=== PATIENT | female | born 1985 | race Caucasian/White ===

== ENCOUNTER 2016-04-21 21:00 | Emergency (ER) | payer OTHER ==
[~2016-04-21] VITALS: Ht 157.5 cm; Wt 110.9 kg
[~2016-04-21 21:00] MED LIST: CLX20 PO; OMEP20CA9 PO
[2016-04-21 21:11] VITALS: TEMP 37.1; Ht 157.5 cm; Wt 110.9 kg
[2016-04-21] MEDS ORDERED: CITA20TA9 PO (21:44)
[2016-04-21] MEDS ORDERED: IBUP1CAP9 PO (21:46)
[2016-04-21] MEDS ORDERED: ACET650S10 PO (21:48)
--- NOTE | 2016-04-21 22:26 | DIAGNOSTIC IMAGING REPORT ---
ULTRASOUND LEFT VENOUS DOPP LOWER EXT UNILAT CLINICAL HISTORY: Left leg pain and swelling COMPARISON STUDY: No previous studies for comparison. FINDINGS: Real-time and color flow Doppler imaging were performed. Flow was seen within the femoral, popliteal and calf veins with no intraluminal thrombus demonstrated. The saphenous vein is patent. IMPRESSION: No evidence of left lower extremity DVT. Electronically signed by: Richard De Leon M.D. 04/21/2016 10:25 PM Dictated Date/Time: 04/21/2016 10:24 PM
--- NOTE | 2016-04-21 22:35 | DIAGNOSTIC IMAGING REPORT ---
LEFT FOOT MIN 3 VIEWS ROUTINE CLINICAL HISTORY: left foot and great toe pain COMPARISON: None. DISCUSSION: No fractures are visualized. There are no erosive or destructive changes. There is mild dorsal soft tissue swelling. IMPRESSION: Mild soft tissue swelling. No fractures identified. No erosive or destructive changes are visualized on conventional radiographic imaging Electronically signed by: Richard De Leon M.D. 04/21/2016 10:34 PM Dictated Date/Time: 04/21/2016 10:33 PM
[2016-04-21 22:51] VITALS: BP 132/93; PULSE 96; O2SAT 97
--- NOTE | 2016-04-21 23:53 | EMERGENCY ROOM VISIT NOTE ---
History First contact with patient: 21:14 Chief Complaint: FOOT PAIN Stated Complaint: SWOLLEN/PAINFUL L FOOT History of Present Illness The patient is a 30 year old female who presents to the Emergency Room with complaints of pain and swelling to her left lower leg and into her foot. The patient does not recall a distinct injury or trauma to explain her symptoms. Her pain worsens with ambulation. 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 The patient does not have a history of DVT or PE, but is concerned about this. She does not have a history of gout or diabetes. She states her symptoms wax and wane, and do worsen with ambulation. Her pain is a 3/10 at rest and a 5/10 with walking. She does not have back pain, knee pain, or other complaint. She has not taken anything [id number] for her symptoms. Review of Systems More than 10 systems were reviewed and otherwise negative with the exception of history of present illness. Past Medical/Surgical History Surgical Problems: (1) History of cholecystectomy (2) Previous section Family History Cancer Social History Smoking Status: Current Every Day Smoker Alcohol Use: none Drug Use: none Marital Status: in relationship Housing Status: lives with family Occupation Status: employed Current/Historical Medications Scheduled Citalopram Hydrobromide (Celexa), 20 MG PO DAILY Scheduled PRN Acetaminophen (Tylenol), 650 MG PO BID PRN for Pain Ibuprofen (Ibuprofen), 400 MG PO BID PRN for Pain Allergies Coded Allergies: Sulfa Drugs (Unverified Allergy, Mild, HIVES, 11/19/13) Physical Exam Vital Signs Date Time Temp Pulse Resp B/P Pulse Ox O2 Delivery O2 Flow Rate FiO2 04/21/16 21:11 37.1 110 18 164/110 95 Room Air Physical Exam VITALS: Vitals are noted on the nurse's note and reviewed by myself. Vital signs stable. GENERAL: Well-developed, well-nourished, obese white female, who is in no acute distress and resting comfortably. Patient is cooperative with the examination. HEAD: Normocephalic atraumatic. HEART: Regular rate and rhythm without murmurs gallops or rubs. LUNGS: Clear to auscultation bilaterally without wheezes, rales or rhonchi. No retractions or accessory muscle use. MUSCULOSKELETAL: Tenderness appreciated over the midfoot of the left foot. There is some edema of the foot but no significant erythema. No ecchymosis. No tenderness of the ankle. There is some pretibial edema, 2+. Mild tenderness over the distal posterior leg. No distinct Homans sign. No palpable cord. NEURO: Patient was alert and oriented to person place and time. CN II through XII grossly intact. Deep tendon reflexes 2+ throughout. Medical Decision & Procedures ER Provider Diagnostic Interpretation: LEFT FOOT MIN 3 VIEWS ROUTINE CLINICAL HISTORY: left foot and great toe pain COMPARISON: None. DISCUSSION: No fractures are visualized. There are no erosive or destructive changes. There is mild dorsal soft tissue swelling. IMPRESSION: Mild soft tissue swelling. No fractures identified. No erosive or destructive changes are visualized on conventional radiographic imaging ULTRASOUND LEFT VENOUS DOPP LOWER EXT UNILAT CLINICAL HISTORY: Left leg pain and swelling COMPARISON STUDY: No previous studies for comparison. FINDINGS: Real-time and color flow Doppler imaging were performed. Flow was seen within the femoral, popliteal and calf veins with no intraluminal thrombus demonstrated. The saphenous vein is patent. IMPRESSION: No evidence of left lower extremity DVT. ED Course Physical exam and history were performed. Nursing notes and EMR were reviewed. Patient appears to have pain into her left foot as well as swelling. X-rays obtained and does not show evidence of acute fracture or dislocation per my radiology's interpretation. Ultrasound was performed out of concern for possible DVT, and this was also negative. I suspect the patient's discomfort is musculoskeletal in nature and should improve with [id number] analgesics , rest, ice, and compression. I discussed this at length with the patient and feel that she is stable for discharge home. The patient may also wish to follow with her primary care physician with any ongoing or persistent symptoms. She voiced understanding of this plan and rated her discomfort a 0/10 at the time of departure. The chart was completed utilizing [employer] Speech Voice Recognition Software. Grammatical errors, random word insertions, pronoun errors, and incomplete sentences are an occasional consequence of this system due to software limitations, ambient noise, and hardware issues. Any formal questions or concerns about the content, text, or information contained within the body of this dictation should be directly addressed to the provider for clarification. . Medical Decision Differential diagnosis: Etiologies such as DVT, musculoskeletal, infection, joint effusion, trauma, lymphedema, idiopathic, CHF, as well as others were entertained.. Impression Primary Impression: Left foot pain Additional Impression: Leg edema, left Departure Information Dispostion Home / Self-Care Condition GOOD Forms HOME CARE DOCUMENTATION FORM, IMPORTANT VISIT INFORMATION Patient Instructions My [facility] Additional Instructions You were seen and evaluated today on an emergency basis only. This is not a substitute for, or an effort to provide, complete comprehensive medical care. It is not possible to recognize and treat all injuries or illnesses in a single emergency department visit. For this reason it is recommended that you followup with your primary care physician this week for ongoing care and evaluation. For baseline pain relief you may alternate ibuprofen and acetaminophen every 4 hours for pain control. Take 600 mg ibuprofen (Advil) and then 4 hours later take 1000 mg acetaminophen (Tylenol). Do not take more than 3000 mg acetaminophen in a single day. Rest and elevate your leg to help reduce swelling. You are welcome to return to the emergency department anytime with new, worsening, or concerning symptoms. Problem Qualifiers
== END 2016-04-21 22:49 | disposition home or self-care (01) ==
LOC: C.EDB 21:02 → C.EDD 22:49
DX: M79.672 Pain in left foot (principal); R60.0 Localized edema; F17.210 Nicotine dependence, cigarettes, uncomplicated; Z79.899 Other long term (current) drug therapy

== ENCOUNTER 2016-05-09 08:38 | Emergency (ER) | payer OTHER ==
[~2016-05-09] VITALS: Ht 157.5 cm; Wt 110.0 kg
[~2016-05-09 08:38] MED LIST changes: +ACET650S10 PO; +CITA20TA9 PO; -CLX20 PO; +IBUP1CAP9 PO; -OMEP20CA9 PO
[2016-05-09 08:39] VITALS: TEMP 37.4; Ht 157.5 cm; Wt 110.0 kg
[2016-05-09] MEDS ORDERED: VALA500T60 PO (09:26)
[2016-05-09] MEDS ORDERED: TRAM-10 PO (09:26)
[2016-05-09] MEDS ORDERED: OXYC1TAB3 PO (09:27)
[2016-05-09] MEDS ORDERED: ACET-1311 PO (09:27)
[2016-05-09] MEDS ORDERED: MoRPHine SULFATE 4 MG/ML 1 ML CARP\\VIAL IV STA (09:41)
[2016-05-09] MEDS ORDERED: ONDANSETRON INJ 2 MG/ML 2 ML VIAL IV STA (09:41)
--- NOTE | 2016-05-09 10:06 | EMERGENCY ROOM VISIT NOTE ---
History Report prepared by Mayda: Torrie Pearce Under the Supervision of: Dr. Gina Bojorquez D.O. First contact with patient: 09:32 Chief Complaint: BELLS PALSY SYMPTOMS Stated Complaint: SHINGLE PAIN, CAN'T SMILE OR BLINK Nursing Triage Summary: pt. diagnosed with shingles on saturday, intense pain left side of head around to her ear, numbness on left side of face and throat, facial droop to left side History of Present Illness The patient is a 30 year old female who presents to the Emergency Room with complaints of persistent left head and face pain and numbness that began Saturday. She currently rates her discomfort as a 6/10 in severity. The patient states that Saturday she woke up with a bad headache that continued to worsen over the day. She states that her pain felt similar to when she had shingles in the past. The patient states that she consulted her PCP and states that she was placed on Valtrex, Tramadol, and Oxycodone and was diagnosed with the shingles. The patient states that she has been trying to use the Tramadol so she can continue to work. She states that today she woke up with left face numbness, difficulty smiling and difficulty blinking. The patient states that she previously had shingles on the back. She denies having any blood work done or being placed on steroids. No rash. The patient notes a low-grade fever. The patient denies any recent travel. She denies any other health problems. Source of History: patient Onset: Saturday Position: head Symptom Intensity: 6/10 Quality: numbness, other (and pain) Timing: other (persistent) Associated Symptoms: + fevers (low-grade) Review of Systems See HPI for pertinent positives & negatives. A total of 10 systems reviewed and were otherwise negative. Past Medical & Surgical Surgical Problems: (1) History of cholecystectomy (2) Previous section Prior Zoster infection Family History Cancer Social History Smoking Status: Current Every Day Smoker Alcohol Use: none Drug Use: none Marital Status: Housing Status: lives with family Occupation Status: employed Current/Historical Medications Scheduled Citalopram Hydrobromide (Celexa), 20 MG PO DAILY Prednisone (Prednisone Tab), 20 MG PO DIRECTED Valacyclovir (Valtrex), 500 MG PO TID Scheduled PRN Acetaminophen (Tylenol), 650 MG PO Q6H PRN for Pain Oxycodone Ir (Roxicodone Ir), 5 MG PO Q6H PRN for Pain Promethazine Hcl (Phenergan), 25 MG PO Q6H PRN for Nausea Tramadol (Ultram), 50 MG PO Q4H PRN for Pain Allergies Coded Allergies: Sulfa Drugs (Unverified Allergy, Mild, HIVES, 05/09/16) Physical Exam Vital Signs Date Time Temp Pulse Resp B/P Pulse Ox O2 Delivery O2 Flow Rate FiO2 05/09/16 11:23 75 16 121/85 96 05/09/16 10:34 93 16 128/101 97 Room Air 05/09/16 08:39 37.4 110 16 144/103 96 Room Air Physical Exam GENERAL: The patient is a pleasant 30 year old female in mild distress. VITALS: Afebrile, hypertensive, tachycardic, normal pulse oximetry on room air. EYES: PERRL, EOMI, left mild ptosis. THROAT: No pharyngeal injection, exudates, or tonsillar hypertrophy. Airway is patent. NECK: Supple, nontender, no lymphadenopathy or nuchal rigidity. THORAX : Symmetrical and nontender to palpation without deformity or palpable crepitus. LUNGS : Clear without wheezing, rhonchi, or rales HEART: Regular rate and rhythm. ABDOMEN: Soft and nontender without guarding, rigidity, or rebound tenderness. Bowel sounds are present in all 4 quadrants. There are no palpable masses organomegaly. No CVA tenderness. Femoral pulses are symmetrical EXTREMITIES : Without deformity or point tenderness. There are no palpable cords, edema, or erythema.. NEUROLOGIC: left facial droop with diminished sensation and mild ptosis/7th nerve palsy, no other deficits SKIN: No rash Medical Decision & Procedures Laboratory Results Test 05/09/16 10:25 Lyme Disease IgG Antibody NEG (NEG) Laboratory studies as stated above per my review. Medications Administered Medications (Trade) Dose Ordered Sig/Zachary Route Start Time Stop Time Status Last Admin Dose Admin Morphine Sulfate (MoRPHine SULFATE INJ) 4 mg NOW STAT IV 05/09/16 09:41 05/09/16 09:44 DC 05/09/16 10:33 4 MG Ondansetron HCl (Zofran Inj) 4 mg NOW STAT IV 05/09/16 09:41 05/09/16 09:44 DC 05/09/16 10:33 4 MG Prednisone (PredniSONE TAB) 60 mg NOW STAT PO 05/09/16 09:41 05/09/16 09:44 DC 05/09/16 11:00 60 MG ED Course 0933: Past medical records reviewed. The patient was evaluated in room A3. A complete history and physical examination was performed. On examination she had evidence of left-sided facial palsy and symptoms consistent with an acute Blevins's palsy. An IV lock was established and she was medicated with morphine and Zofran with improvement of her pain and nausea. She was also treated with 60 mg of oral prednisone. A Lyme titer was checked and which was negative. At this time she is felt to have an acute Blevins's positive. She is not felt to have an acute CVA. She is to continue taking the Valtrex as well as the tramadol and oxycodone as prescribed by her personal physician. She is being placed on a short course of prednisone. She's been provided an eye patch and instructions regarding eye care. She should have close outpatient follow-up with her personal physician for recheck. Return if worsening symptoms or concerns. The patient and her are comfortable with this treatment plan. 0941: Ordered Prednisone 60 mg PO, Zofran Inj 4 mg IV, Morphine Sulfate 4 mg IV. 1020: I reevaluated the patient and she has not had her blood work yet. 1052: I reevaluated the patient and she is feeling better. I discussed the exam findings with her and I discussed the treatment plan. She verbalized complete understanding and agreement. She is ready to go home. Medical Decision EMR, nurse's notes, diagnostic studies personally reviewed Differential diagnosis-see above The chart was completed utilizing [employer] Speech Voice Recognition Software. Grammatical errors, random word insertions, pronoun errors, and incomplete sentences are an occasional consequence of this system due to software limitations, ambient noise, and hardware issues. Any formal questions or concerns about the content, text, or information contained within the body of this dictation should be directly addressed to the physician for clarification. Impression Primary Impression: Blevins's palsy Scribe Attestation The scribe's documentation has been prepared under my direction and personally reviewed by me in its entirety. I confirm that the note above accurately reflects all work, treatment, procedures, and medical decision making performed by me. Departure Information Dispostion Home / Self-Care Prescriptions Promethazine Hcl (Phenergan) 25 Mg Tab 25 MG PO Q6H Y for Nausea, #6 TAB Prov: Gina Bojorquez D.O. 05/09/16 Prednisone (Prednisone Tab) 20 Mg Tab 20 MG PO DIRECTED, #18 TAB 3 x 2 days then 2 x 3 days then 1 x 3 days Prov: Gina Bojorquez D.O. 05/09/16 Referrals Chela Jauregui D.O. (PCP) Forms HOME CARE DOCUMENTATION FORM, IMPORTANT VISIT INFORMATION, Work Instructions Patient Instructions [facility] Additional Instructions Continue pain medication and Valtrex as prescribed One Phenergan every 6 hours as needed for nausea Take 2 prednisone for 2 additional days then 2 for 3 days then one for 3 days Wear eye patch at night and use Lacri-Lube at bedtime also protect eyes when windy and use a artificial tear product to decrease eye dryness Follow-up with your family doctor for recheck Return if worsening symptoms or concerns I will notify you if lyme test is positive
[2016-05-09] MEDS ORDERED: PROM25TA9 PO (11:02)
[2016-05-09] MEDS ORDERED: PRED20TA2 PO (11:02)
[2016-05-09 11:23] VITALS: BP 121/85; PULSE 75; O2SAT 96
== END 2016-05-09 11:27 | disposition home or self-care (01) ==
LOC: C.EDB 08:39 → C.EDA 11:27
DX: G51.0 Bell's palsy (principal); B02.9 Zoster without complications; F17.210 Nicotine dependence, cigarettes, uncomplicated; Z79.899 Other long term (current) drug therapy